=== PATIENT | male | born 1960 | race Caucasian/White ===

== ENCOUNTER 2016-08-06 16:00 | Emergency (ER) | payer BC ==
[~2016-08-06] VITALS: Ht 185.4 cm; Wt 98.0 kg
[~2016-08-06 16:00] MED LIST: IBUP-103 PO
[2016-08-06 16:10] VITALS: TEMP 36.4; Ht 185.4 cm; Wt 98.0 kg
[2016-08-06] MEDS ORDERED: XYLOCAINE 1%/SOD BICARB 20 ML VIAL INFIL ONE (16:30)
[2016-08-06] MEDS ORDERED: DIPHTHERIA/TETANUS/PERTUSSIS 0.5 ML SYR/VIAL IM. ONE (16:30)
--- NOTE | 2016-08-06 16:52 | EMERGENCY ROOM VISIT NOTE ---
ED Visit Note First contact with patient: 16:16 CHIEF COMPLAINT: Right Leg laceration HISTORY OF PRESENT ILLNESS: This 56-year-old male presents the ER with chief complaint of a laceration to his right lower leg. The patient states that he was cutting branches with a machete and accidentally hit his right lower leg. The patient states that there was a lot of bleeding but he thinks it might have stopped by now. The patient denies any numbness and tingling in his lower extremities. The patient denies being on any blood thinners. The patient states that his tetanus is not up-to-date. REVIEW OF SYSTEMS: 6 system review was performed and was negative unless stated otherwise in history of present illness. PMH: The patient is healthy; appendectomy, back surgery SOCIAL HISTORY: Patient lives with his . The patient denies any tobacco or alcohol use. PHYSICAL EXAM: Vital Signs: Were reviewed Reviewed Nurse's notes. GENERAL: 56- year-old white male appears in no acute distress. MENTAL Status: Alert and oriented 3. LEFT LOWER LEG: There is a 2 cm long laceration on the proximal anterior medial aspect of the leg. The edges are gaping apart. There is no foreign material in the wound and it looks clean. There is no active bleeding. No deep structures such as tendons or nerves are seen in the base of the wound. EMERGENCY DEPARTMENT COURSE: The patient was evaluated. The patient was given Adacel. Wound Repair: Complexity: Basic. Verbal consent was obtained after the risks and benefits were explained, including but not limited to bleeding, scarring, infection, pain, and bone/joint /nerve damage. The skin was prepped with betadine and a sterile field set. The wound was anesthetized with 3 ml of 1% buffered lidocaine. With direct pressure the bleeding subsided. Copious irrigation was performed using sterile saline. The wound was explored for foreign bodies and none found. Debridement was not performed. The wound edges were approximated using 5-0 Ethilon with 4 simple interrupted sutures. Hemostasis and excellent approximation was achieved. Antibacterial ointment and a sterile dressing applied. Detailed wound care instructions and signs and symptoms of infection reviewed with the patient. No complications and the patient tolerated the procedure well. DIAGNOSIS: 2 cm right Leg laceration DISCHARGE INSTRUCTIONS & TREATMENT: Keep wound clean and dry. No water on the area for 12-24 hrs then no soaking until sutures removed. Do not allow any crusting or dried blood to accumulate on sutures. If this occurs, use a 1:1 solution of hydrogen peroxide/water on a Q-tip to clean the wound. Use an antibiotic ointment for 3-4 days, then let wound dry. Suture removal in 8 days. Follow up sooner for any signs of infection (increasing redness, swelling , drainage). Ice and elevate for swelling and pain. Tylenol 650 mg every 6 hrs for pain. Keep covered when in sun until sutures removed then SPF 50 or higher for one year. Vitamin E oil if desired two weeks after suture removal for reduction of scar. Current/Historical Medications Scheduled Ibuprofen Tab (Advil), 400-600 MG PO Q6HR PRN Allergies Coded Allergies: No Known Allergies (Unverified , 08/06/16) Vital Signs Date Time Temp Pulse Resp B/P Pulse Ox O2 Delivery O2 Flow Rate FiO2 08/06/16 16:10 36.4 87 18 137/92 97 Room Air Medications Administered Medications (Trade) Dose Ordered Sig/Maisha Route Start Time Stop Time Status Last Admin Dose Admin Diphtheria/ Pertussis/Tetanus Vacc (Adacel Inj) 0.5 ml ONCE ONCE IM. 08/06/16 16:30 08/06/16 16:31 DC 08/06/16 16:36 0.5 ML Lidocaine HCl (Buffered Lidocaine 1% Inj) 20 ml NOW ONCE INFIL 08/06/16 16:30 08/06/16 16:31 DC 08/06/16 16:37 20 ML Departure Information Referrals Phani Rivera M.D. (PCP) Patient Instructions [facility]
[2016-08-06 17:11] VITALS: BP 138/80; PULSE 68; O2SAT 98
== END 2016-08-06 17:12 | disposition home or self-care (01) ==
LOC: C.EDB 16:02 → C.EDD 17:12
DX: S81.811A Laceration without foreign body, right lower leg, initial encounter (principal); W22.8XXA Striking against or struck by other objects, initial encounter; Y93.H2 Activity, gardening and landscaping; Z90.89 Acquired absence of other organs; Z98.890 Other specified postprocedural states; Z23 Encounter for immunization